=== PATIENT | male | born 1995 | race Caucasian/White ===

== ENCOUNTER 2019-02-21 19:12 | Emergency (ER) | payer BC, OTHER ==
[~2019-02-21] VITALS: Ht 175.3 cm; Wt 68.0 kg
[~2019-02-21 19:12] MED LIST: CARAFATE1 GM PO; Z.0.PROTONIX40 MG PO
--- OUTSIDE RECORDS SUMMARY | 2019-02-21 19:17 | XMS REPORT ---
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 Allergies, Adverse Reactions, Alerts This patient has no known allergies or adverse reactions. Medications This patient has no known medications.
[2019-02-21] MEDS ORDERED: KETOROLAC TROMETHAMINE 60 MG/2 ML VIAL IM ONE (19:30)
[2019-02-21] MEDS ORDERED: NAPROSYN500 MG PO (19:36)
[2019-02-21] MEDS ORDERED: FIORINAL 50-321 EACH PO (19:36)
--- NOTE | 2019-02-21 20:39 | Diagnostic Imaging Report ---
Examination: CT head without contrast Clinical Indication: Headache for 2 years. Technique: Transaxial noncontrast images from the skull base through the vertex were obtained. Sagittal and coronal reformatted images were done. Dose modulation, iterative reconstruction, and/or weight based adjustment of the mA/kV was utilized to reduce the radiation dose to as low as reasonably achievable. Comparison: None. Findings: Scalp: No abnormalities. Bones: Intact. No fractures. No blastic or lytic lesions. Brain sulci: Appropriate for patient's age. Ventricles: Normal in size and configuration. No hydrocephalus. Extra-axial space: No abnormalities. Parenchyma: No abnormal densities. No masses, hemorrhage, or acute or chronic cortical based vascular insults. Suprasellar region: No abnormalities. Craniocervical junction: The foramen magnum is patent. No Chiari one malformation. Impression: No intracranial abnormality. Signed by: Dr. Iman Silva M.D. on 02/21/2019 8:36 PM
[2019-02-21] MEDS ORDERED: KETOROLAC TROMETHAMINE 30 MG/ML VIAL ONE (20:47)
== END 2019-02-21 20:59 | disposition home or self-care (01) ==
LOC: FSED 19:12
DX: G44.89 Other headache syndrome (principal)
CPT/HCPCS: 70450; 80053; 85025; 99283; J1885 ×2